=== PATIENT | male | born 1970 | race Caucasian/White ===

== ENCOUNTER 2023-08-17 09:30 | Emergency (ER) | payer OTHER | END 2023-08-17 11:15 | disposition home or self-care (01) | LOC: JD.ED 09:30 | DX: S13.4XXA Sprain of ligaments of cervical spine, initial encounter (principal); S66.312A Strain of extensor muscle, fascia and tendon of right middle finger at wrist and hand level, initial encounter; S00.03XA Contusion of scalp, initial encounter; J45.909 Unspecified asthma, uncomplicated; E66.9 Obesity, unspecified; Z68.44 Body mass index [BMI] 60.0-69.9, adult; Z88.0 Allergy status to penicillin; Z79.899 Other long term (current) drug therapy; W01.198A Fall on same level from slipping, tripping and stumbling with subsequent striking against other object, initial encounter; Y93.02 Activity, running | CPT/HCPCS: 70450; 70450-26; 72125; 72125-26; 73130-26-RT; 73130-RT; 99284 ==